=== PATIENT | male | born 1985 | race Caucasian/White ===

== ENCOUNTER → 2022-04-21 10:18 | Outpatient (CLI) | payer OTHER, SELFPAY ==
--- NOTE | ~2022-04-21 | XR_ITS ---
XR knee RT 2V DATE: 04/21/2022 10:30 INDICATION: Right knee pain TECHNIQUE: Standing AP and lateral views COMPARISON: None FINDINGS: No fracture or dislocation or joint effusion. No periosteal reaction or bone destruction. T here is slight periarticular spurring of the patella. No radiopaque intra-articular loose body or cho ndrocalcinosis. IMPRESSION: Minimal patellofemoral osteoarthritis Reviewed, dictated and finalized at location A.
== END ==
PROVIDERS: PCP Internal Medicine; Visit Provider Clinical Nurse Specialist
DX: M25.561 Pain in right knee (principal); M17.11 Unilateral primary osteoarthritis, right knee
CPT/HCPCS: 73560

== ENCOUNTER 2022-06-05 15:30 | Outpatient (RCR) | payer OTHER, SELFPAY ==
--- NOTE | 2022-05-04 16:23 | PTOPEVAL ---
PHYSICAL THERAPY INITIAL EVALUATION. Thank you for referring Benjamín Prasad to [facility] [place] The patient is scheduled to be seen for therapy? 1x/week for 4 weeks. Please review, sign, date and return this plan of care KIRILL. I agree with and certify that the following plan of care is medically necessary. Referring Physician Date Attending Provider: Devorah Anand, FLAVIA *PT Outpatient Evaluation Start: 05/04/22 Evaluation Information Diagnosis R knee pain Onset ~3 weeks Subjective Information Pt states functional he can do Query Text:As Reported By Patient/ whatever he wants with his Family knee. He states he just gets these random bouts of pain where it feels like battery acid is being injected into his knee, he states his last from 5 to 45 seconds. He does not report a mechanism of injury. He states this has been happening 1x every 1-2 weeks for the last 7 months, within the last couple of weeks this has increased to 5- 6 times a day. He was given a prescription anti-inflammatory and since then has only have a couple of the last week. He has not been able to identify a position or action that causes his pain. 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 Pain Assessment Right Knee(s) Reported Pain Level 0 Pain Frequency Chronic,Intermittent Lowest Pain Intensity 0 Greatest Pain Intensity 9 Lower Extremity Range of Motion General Lower Extremity Range of Motion WFL/Left,WFL/Right Lower Extremity Muscle Strength Testing Gross Lower Extremity Strength killian hip flexion 5/5 killian knee flexion/extension 5/5 killian hip abduction 4+/5 - good medial/lateral stability during killian LE squat increased medial motion with singe leg squat Palpation Assessment Palpation increased patellar mobility R >L Special Tests-Lower Extremity Knee Special Tests Lynda's Negative Left,Negative Right Anterior Drawer Negative Left,Negative Right Posterior Drawer Negative Left,Negative Right Valgus Stress Test Knee at 0 Degrees Negative Left,Negative Right Valgus Stress Test Knee at 30 Degrees Negative Right Varus Stress Test
--- NOTE | 2022-06-05 15:52 | PTOPEVAL ---
PHYSICAL THERAPY PROGRESS REPORT AND DISCHARGE SUMMARY. Thank you for referring Benjamín Prasad to [facility].? The patient is to be discharged from skilled therapy services at this time. Please review, sign, date and return this plan of care KIRILL. I agree with and certify that the following plan of care is medically necessary. Referring Physician Date Attending Provider: FLAVIA Best *PT Outpatient Evaluation Start: 05/04/22 Evaluation Information Diagnosis R knee pain Onset ~8 weeks Subjective Information Pt states his knee is doing Query Text:As Reported By Patient/ much better. He states he has Family not had the pain that causes his initial complaint in almost 3 weeks. He states even this time it was 30% of how intense the pain usually is. He does not remember the last time he took Alive, and has not had his prescription anti- inflammatory in over a month. 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 20s : 8 reps, decreased eccentric control and increase medial/ lateral motion at time elapsed R single leg sit<>glass bulb machine adjuster 20s : 8.5, reps decreased eccentric control and increase medial/lateral motion at time elapsed 20lb box lift and carry from ground level - equal weight distribution without deviations Palpation Assessment Palpation none tenderness reported Gait Assessment Ambulation Assistive Devices None Gait Pattern No Deviations/Normal Stair Climbing Assessment Stair Climbing Assistive Devices None Technique Alternating Steps Stair Climbing Direction Both Up and Down Stair Climbing Comments ascends and descend without UE support and with a reciprocal
== END 2022-06-10 15:47 | disposition home or self-care (01) ==
LOC: ANHGOSHPT 15:30
PROVIDERS: PCP Internal Medicine; Visit Provider Clinical Nurse Specialist
DX: M25.561 Pain in right knee (principal)
CPT/HCPCS: 97110; 97112; 97140; 97161; 97530

== ENCOUNTER 2022-12-10 08:53 | Outpatient (CLI) | payer OTHER, SELFPAY ==
[2022-12-10 19:48] LABS: Alanine Aminotransferase 62 U/L (6-50); Albumin Level 4.7 g/dL (3.5-5.1); Alkaline Phosphatase 87 U/L (38-126); Anion Gap 3 mmol/L (8-16); Aspartate Amino Transferase 54 U/L (17-59); Bilirubin,Total 0.6 mg/dL (0.2-1.3); Blood Urea Nitrogen 9 mg/dL (9-20); Calcium 8.8 mg/dL (8.4-10.2); Carbon Dioxide 30 mmol/L (22-30); Chloride 102 mmol/L (98-107); Cholesterol 203 mg/dL (0-200); Estimated Glomerular Filt Rate > 60; Glucose 84 mg/dL (65-110); HDL Direct 46 mg/dL; Potassium 4.4 mmol/L (3.4-5.0); Sodium 135 mmol/L (137-145); Triglycerides 91 mg/dL (<150)
[2022-12-10 19:59] LABS: LDL Cholesterol Direct 114 mg/dL
[2022-12-10 21:17] LABS: Basophils Percent Auto 0.7 % (0.2-1.2); Eosinophils Absolute Auto 0.1 K/mm3 (0-0.3); Eosinophils Percent Auto 2.5 % (0-4.4); Hematocrit 43.7 % (42.0-52.0); Hemoglobin 14.4 g/dL (14.0-18.0); Immature Granulocyte Absolute 0.02 K/mm3 (0.00-0.031); Immature Granulocyte Percent A 0.4 % (0-0.5); Lymphocytes Absolute Auto 2.08 K/mm3 (0.9-3.2); Lymphocytes Percent Auto 37.6 % (18.3-44.2); Mean Corpuscular Hemoglobin 30.3 pg (26-34); Mean Corpuscular Volume 91.8 fl (80-100); Mean Platelet Volume 11.8 fl (7.4-10.4); Monocytes Absolute Auto 0.5 K/mm3 (0.1-0.6); Monocytes Percent Auto 8.3 % (2.6-8.5); Neutrophils Absolute Auto 2.8 K/mm3 (1.3-6.7); Neutrophils Percent Auto 50.5 % (45.5-73.1); Platelet Count Result 263 k/mm3 (150-375); Red Blood Count 4.76 M/mm3 (4.6-6.20); Red Cell Distribution Width 13.2 % (11.5-14.5); White Blood Count 5.5 K/mm3 (4.5-10.0)
[2022-12-18 15:46] LABS: Testosterone Free 56.9 pg/mL (35.0-155.0); Testosterone Total 266 ng/dL (250-1100)
== END 2022-12-10 08:54 | disposition home or self-care (01) ==
LOC: ANHGOSHLAB 08:55
PROVIDERS: PCP Internal Medicine; Visit Provider Nurse Practitioner
DX: R53.83 Other fatigue (principal); Z13.220 Encounter for screening for lipoid disorders; I10 Essential (primary) hypertension; Z13.29 Encounter for screening for other suspected endocrine disorder
CPT/HCPCS: 36415; 80053; 80061; 84402; 84403; 85025

== ENCOUNTER 2023-01-11 13:24 | Outpatient (CLI) | payer OTHER, SELFPAY ==
[2023-01-12 14:33] LABS: Prostate Specific Antigen 0.6 ng/mL (< OR = 4.0)
[2023-01-15 16:36] LABS: Testosterone Free 46.6 pg/mL (35.0-155.0); Testosterone Total 263 ng/dL (250-1100)
[2023-01-16 05:41] LABS: FSH 2.7 mIU/mL (1.6-8.0); LH 3.4 mIU/mL (1.5-9.3)
[2023-01-19 00:16] LABS: Estradiol, Ultrasensitive 20 pg/mL (< OR = 29)
== END 2023-01-11 13:25 | disposition home or self-care (01) ==
LOC: ANHGOSHLAB 13:27
PROVIDERS: PCP Internal Medicine; Visit Provider Nurse Practitioner
DX: E29.1 Testicular hypofunction (principal); R53.83 Other fatigue; G25.81 Restless legs syndrome
CPT/HCPCS: 36415; 82670; 82728; 83001; 83002; 84153; 84402; 84403

== ENCOUNTER 2023-05-17 12:35 | Outpatient (CLI) | payer OTHER, SELFPAY ==
[2023-05-17 13:40] LABS: Basophils Percent Auto 0.8 % (0.2-1.2); Eosinophils Absolute Auto 0.1 K/mm3 (0-0.3); Eosinophils Percent Auto 2.7 % (0-4.4); Hematocrit 44.2 % (42.0-52.0); Hemoglobin 14.4 g/dL (14.0-18.0); Immature Granulocyte Absolute 0.02 K/mm3 (0.00-0.031); Immature Granulocyte Percent A 0.4 % (0-0.5); Lymphocytes Absolute Auto 1.68 K/mm3 (0.9-3.2); Lymphocytes Percent Auto 32.6 % (18.3-44.2); Mean Corpuscular HGB Conc 32.6 g/dl (32-36); Mean Corpuscular Hemoglobin 30.1 pg (26-34); Mean Corpuscular Volume 92.5 fl (80-100); Mean Platelet Volume 10.9 fl (7.4-10.4); Monocytes Absolute Auto 0.4 K/mm3 (0.1-0.6); Monocytes Percent Auto 7.6 % (2.6-8.5); Neutrophils Absolute Auto 2.9 K/mm3 (1.3-6.7); Neutrophils Percent Auto 55.9 % (45.5-73.1); Platelet Count Result 274 k/mm3 (150-375); Red Blood Count 4.78 M/mm3 (4.6-6.20); White Blood Count 5.2 K/mm3 (4.5-10.0)
[2023-05-17 13:50] LABS: Alanine Aminotransferase 94 U/L (6-50); Albumin Level 4.3 g/dL (3.5-5.1); Alkaline Phosphatase 88 U/L (38-126); Anion Gap 5 mmol/L (8-16); Aspartate Amino Transferase 59 U/L (17-59); Bilirubin,Total 0.4 mg/dL (0.2-1.3); Blood Urea Nitrogen 16 mg/dL (9-20); Calcium 9.2 mg/dL (8.4-10.2); Carbon Dioxide 28 mmol/L (22-30); Chloride 103 mmol/L (98-107); Estimated Glomerular Filt Rate > 60; Glucose 95 mg/dL (65-110); Potassium 4.4 mmol/L (3.4-5.0); Sodium 136 mmol/L (137-145)
[2023-05-20 15:40] LABS: Testosterone Free 62.6 pg/mL (35.0-155.0); Testosterone Total 290 ng/dL (250-1100)
== END 2023-05-17 12:36 | disposition home or self-care (01) ==
LOC: ANHGOSHLAB 12:36
PROVIDERS: PCP Internal Medicine; Visit Provider Nurse Practitioner
DX: E29.1 Testicular hypofunction (principal)
CPT/HCPCS: 36415; 80053; 84402; 84403; 85025

== ENCOUNTER 2023-11-29 08:47 | Outpatient (CLI) | payer OTHER, SELFPAY ==
--- NOTE | 2023-12-20 09:32 | WPDHOMESLEEP ---
Sleep Study - Home Unattended Date of Study: 11/29/23 Ordering Provider: Eva Haddad NP Interpreting Provider: Janine Chi, DO Home Sleep Study Type: Watch PAT Height: 1.8 m Weight: 111.13 kg Body Mass Index: 34.2 Neck Circumference (inches): 17 [place]: 6 Reason for Sleep Study Daytime hypersomnia Sleep History The patient is a 38-year-old with anxiety, depression, ADHD, hypertension and obesity that had a sleep study ordered by his care for evaluation of sleep apnea. The patient rarely awakens from sleep short of breath. He occasionally awakens at night with heartburn, belching or cough. He frequently snores loudly enough that others complain. He frequently has trouble sleeping when he has a cold. He denies waking up gasping for air throughout the night. He rarely has breathing problems at night observed by himself or others. He rarely sweats excessively at night. He rarely has heart palpitations or irregular heartbeats during the night. He rarely falls asleep during the day but never while driving. He denies sleep paralysis and cataplexy. He occasionally has trouble at school or work due to sleepiness. He occasionally experiences vivid dreamlike scenes upon awakening or falling asleep. He denies feeling afraid of going to sleep. He denies having nightmares. He frequently remembers his dreams. He occasionally has thoughts racing through his mind. He occasionally feels sad, depressed and anxious. He frequently has muscular tension. He frequently notices parts of his body jerk. He frequently kicks during the night. He occasionally has crawling and aching feelings in his legs but never has leg pain during the night. He rarely grinds his teeth during sleep and rarely awakens morning jaw pain. He is occasionally bothered by pain during the day but never awakened by pain during the night. He frequently wakes up feeling stiff in the morning. He occasionally wakes up with sore or achy muscles. He rarely wakes up with pain in the neck, spine and other joints. He goes to bed between 11:30 p.m. to 1:00 a.m. on weekdays and between 12:30 a.m. to 2:00 a.m. on the weekends. It takes him 5-15 minutes to fall asleep. He wakes up once throughout the night at most to urinate and is able to fall back asleep within 5 minutes. He wakes up at 7:00 a.m. on weekdays and 8:00 a.m. on the weekends. He typically gets 5.5-6.5 hours of sleep per night. He will stay in bed any new where from 5-30 minutes after waking up in the morning. He currently lives with his and child. He denies consuming any caffeinated beverages within 2 hours of bedtime. He denies engaging in physical exercise before bedtime. He denies reading before falling asleep. He will watch television before falling asleep. He denies taking naps in the afternoon or the evening. He consumes 250-500 mg of caffeine per day. He denies tobacco use. He consumes 1-3 alcoholic beverages per week. He uses marijuana 1-3 times per month and recreational mushrooms 3-4 times per year. [facility] Past Medical History Medical History Allergies Depression with anxiety Elevated liver enzymes Encounter for monitoring testosterone replacement therapy Insomnia PTSD (post-traumatic stress disorder) Surgical History Surgical History History of placement of ear tubes [place] teeth extracted Family History Family History Mother Obesity FH: HTN (hypertension) Prediabetes Father FH: HTN (hypertension) Grandparent Acute myocardial infarction FH: HTN (hypertension) Diabetes mellitus Glaucoma Bone cancer Social History Social History Smoking status: Never smoker Alcohol intake: current Drinks per week: 3 Alcohol use details: Whiskey
[2023-12-20 09:41] VITALS: BMI 34.2
== END 2023-11-30 13:32 | disposition home or self-care (01) ==
LOC: ANHCSM 08:48
PROVIDERS: PCP Internal Medicine; Visit Provider Nurse Practitioner
DX: G47.33 Obstructive sleep apnea (adult) (pediatric) (principal); R40.0 Somnolence; I10 Essential (primary) hypertension; F39 Unspecified mood [affective] disorder
CPT/HCPCS: 95800